=== PATIENT | male | born 1935 | race Caucasian/White ===

== ENCOUNTER 2017-07-14 17:02 | Observation (INO) ==
[2017-07-14] MEDS ORDERED: Pantoprazole 80 MG in 0.9 % Sodium Chloride 50 ML IVPB ONE (17:20)
[2017-07-14] MEDS ORDERED: 0.9 % Sodium Chloride 1,000 ML IVC ONE (17:20)
[2017-07-14 18:05] LABS: Basophils # 0.1 K/mcL (0.0-0.2); Basophils % 0.4 %; Eosinophils % 0.1 %; Hematocrit 34.6 % (37.5-50.1); Hemoglobin 11.7 g/dL (12.9-16.9); Immature Granulocytes % 2.3 % (0-4); Lymphocytes # 1.4 K/mcL (0.6-4.6); Lymphocytes % 8.9 %; Mean Corpuscular HGB Conc 33.8 g/dL (31.6-35.5); Mean Corpuscular Hemoglobin 31.9 pg (28.0-33.3); Mean Corpuscular Volume 94.3 fL (83.0-100.0); Mean Platelet Volume 9.4 fL (9.4-12.4); Monocytes # 1.3 K/mcL (0.0-1.3); Neutrophils # 12.8 K/mcL (1.6-8.9); Platelet Count 273 K/mcL (140-400); Red Blood Count 3.67 M/mcL (4.19-5.50); Red Cell Distribution Width 12.5 % (11.5-14.5); Segmented Neutrophils % 80.3 %
[2017-07-14 18:10] LABS: INR 1.1; Prothrombin Time 11.9 Seconds (9.4-12.1)
[2017-07-14 18:13] LABS: Activated Partial Thrombo Time 23.4 Seconds (26.0-36.0)
[2017-07-14 18:23] LABS: Alanine Aminotransferase 16 Units/L (7-52); Albumin 3.6 g/dL (3.5-5.7); Albumin/Globulin Ratio 1.6 (1.1-2.2); Alkaline Phosphatase 68 Units/L (34-104); Aspartate Amino Transferase 13 Units/L (13-39); BUN/Creatinine Ratio 42 (6-26); Blood Urea Nitrogen 53 mg/dL (8-23); Calcium 8.4 mg/dL (8.6-10.3); Carbon Dioxide 22 mEq/L (23-29); Chloride 107 mEq/L (98-107); Globulin 2.2 g/dL (2.4-3.5); Glucose 126 mg/dL (70-105); Lipase 14 Units/L (11-82); Osmolality,Calculated 302 (280-300); Potassium 4.2 mEq/L (3.5-5.1); Sodium 138 mEq/L (136-145); Total Protein 5.8 g/dL (6.4-8.9); eGFR For African Americans > 60 (> 60); eGFR For Non-African Americans 55 (> 60)
--- NOTE | 2017-07-14 18:55 | Emergency Department Note ---
Disposition Clinical Impression: GI bleed Disposition: Admitted As Inpatient Condition: Good Referrals: Adam De La Cruz MD [Primary Care Provider] - Forms: ED Satisfaction Letter, Work/School Release Time of Disposition: 19:06 Abdominal Pain HPI - General Chief Complaint: ED Abdominal Pain Stated Complaint: ABD Pain Time Seen by Provider: 07/14/17 17:10 Source: patient Mode of arrival: ambulatory Limitations: no limitations Nursing Notes Reviewed: Yes Vital Signs Reviewed: Yes - History of Present Illness HPI Narrative: Patient presents to the ED with the chief complaint of abdominal pain and melanic stools. Patient reports that he has intermittent epigastric abdominal pain all the time that it is been worse over the last few days. States that he had his right- sided sciatica acting up on him, so he has been taking ibuprofen daily for about the last week. He finally went to his chiropractor today to get adjusted and his pain is gone. Family reports that last night he had an episode of vomiting after epigastric abdominal pain. And then he had 2 episodes of melanic stools that have blood mixed in with it. Family does have a picture of this. Patient states he just has not really felt right since then. No chest pain, shortness of breath, fever or further vomiting. No dysuria or hematuria. No pain or swelling in his legs. No previous history of GI bleed. Has had a colonoscopy within the last few years, which did show some polyps but no history of malignancy Pain Scale: 0 - Related Data Home Medications Medication Instructions Recorded Confirmed Lovastatin [Altoprev] 20 mg PO DAILY 07/04/17 07/14/17 Lisinopril [Zestril] 10 mg PO DAILY 07/14/17 07/14/17 Allergies Allergy/AdvReac Type Severity Reaction Status Date / Time No Known Allergies Allergy Verified 07/14/17 17:06 Review of Systems: As reviewed in the HPI. All other systems reviewed are negative or normal. Abdominal Pain PMH - Past Medical History Medical history: Reports: hyperlipidemia, hypertension, other Male Surgical History: Reports: herniorrhaphy, orthopedic, other Psychiatric history: Reports: no psych history - Social History Smoking status: Never smoker Alcohol use: Reports: none Drug use: Reports: none Physical Exam - General Limitations: no limitations General appearance: alert, in no apparent distress - Head Head exam: atraumatic, normocephalic, normal inspection - Eye Eye exam: Present: normal appearance, PERRL, EOMI - ENT ENT exam: normal exam, normal oropharynx, mucous membranes moist - Chest Chest inspection: Present: normal inspection, symmetric chest wall rise - Respiratory Respiratory exam: Present: normal lung sounds bilaterally - Cardiovascular Cardiovascular exam: Present: regular rate, normal rhythm, normal heart sounds - Abdominal Exam Abdominal exam: Present: soft, tenderness, distention (Mild). Absent: guarding , rebound Abdominal tenderness: Present: epigastrium, mild - Extremities Exam Extremities exam: Present: normal inspection, full ROM. Absent: tenderness, pedal edema - Neurological Exam Neurological exam: Present: alert, oriented X3 - Psychiatric Psychiatric exam: Present: normal affect, normal mood - Skin Skin exam: Present: warm, dry, intact, normal color Course Course Narrative: Patient presenting the ED with epigastric abdominal pain and melanic stools. He declined a rectal exam at this time and wanted to try to have a bowel movement. However, the picture that his family has is clearly melanic stools with blood. Suspecting upper GI bleed from his recent ibuprofen use. He is not on blood thinners. We will check labs, get protonic's, IV fluids and admit. The patient's vitals are stable. He is not in any distress. - Reevaluation(s) Reevaluation #1: Patient with apparent GI bleed. Hemoglobin is not acutely low. His vital signs are stable. Admitted to Dr. Tapia Vital Signs Temperature 97.9 F 07/14/17 17:03 Pulse Rate 108 07/14/17 17:03 Respiratory Rate 16 07/14/17 17:03 Blood Pressure 103/68 07/14/17 17:03 O2 Sat by Pulse Oximetry 96 07/14/17 17:03 Temperature 97.9 F 07/14/17 17:03 Pulse Rate 78 07/14/17 18:42 Respiratory Rate 21 07/14/17 18:42 Blood Pressure 131/65 07/14/17 18:42 O2 Sat by Pulse Oximetry 100 07/14/17 18:42 Oxygen Delivery Oxygen Delivery Room Air Abdominal Pain - Lab Data Result diagrams: 07/14/17 17:51 07/14/17 17:51 Lab Results 07/14/17 07/14/17 07/14/17 Range/Units 17:51 17:51 17:51 WBC 15.9 H (4.3-11.1) K/mcL RBC 3.67 L (4.19-5.50) M/mcL Hgb 11.7 L (12.9-16.9) g/dL Hct 34.6 L (37.5-50.1) % MCV 94.3 (83.0-100.0) fL MCH 31.9 (28.0-33.3) pg MCHC 33.8 (31.6-35.5) g/dL RDW 12.5 (11.5-14.5) % Plt Count 273 (140-400) K/mcL MPV 9.4 (9.4-12.4) fL Immature Gran % 2.3 (0-4) % Seg Neutrophils % 80.3 % Lymphocytes % 8.9 % Monocytes % 8.0 % Eosinophils % 0.1 % Basophils % 0.4 % Neutrophils # 12.8 H (1.6-8.9) K/mcL Lymphocytes # 1.4 (0.6-4.6) K/mcL Monocytes # 1.3 (0.0-1.3) K/mcL Eosinophils # 0.0 (0.0-0.6) K/mcL Basophils # 0.1 (0.0-0.2) K/mcL PT 11.9 (9.4-12.1) Seconds INR 1.1 APTT 23.4 L (26.0-36.0) Seconds Sodium 138 (136-145) mEq/L Potassium 4.2 (3.5-5.1) mEq/L Chloride 107 (98-107) mEq/L Carbon Dioxide 22 L (23-29) mEq/L BUN 53 H (8-23) mg/dL Creatinine 1.25 (0.70-1.30) mg/dL Est GFR ( Amer) > 60 (> 60) Est GFR (Non-Af Amer) 55 L (> 60) BUN/Creatinine Ratio 42 H (6-26) Glucose 126 H (70-105) mg/dL Calculated Osmolality 302 H (280-300) Lactic Acid (0.5-2.2) mmol/L Calcium 8.4 L (8.6-10.3) mg/dL Total Bilirubin 1.0 (0.3-1.0) mg/dL AST 13 (13-39) Units/L ALT 16 (7-52) Units/L Alkaline Phosphatase 68 (34-104) Units/L Serum Total Protein 5.8 L (6.4-8.9) g/dL Albumin 3.6 (3.5-5.7) g/dL Globulin 2.2 L (2.4-3.5) g/dL Albumin/Globulin Ratio 1.6 (1.1-2.2) Lipase 14 (11-82) Units/L Blood Type Antibody Screen 07/14/17 07/14/17 Range/Units 17:51 18:24 WBC (4.3-11.1) K/mcL RBC (4.19-5.50) M/mcL Hgb (12.9-16.9) g/dL Hct (37.5-50.1) % MCV (83.0-100.0) fL MCH (28.0-33.3) pg MCHC (31.6-35.5) g/dL RDW (11.5-14.5) % Plt Count (140-400) K/mcL MPV (9.4-12.4) fL Immature Gran % (0-4) % Seg Neutrophils % % Lymphocytes % % Monocytes % % Eosinophils % % Basophils % % Neutrophils # (1.6-8.9) K/mcL Lymphocytes # (0.6-4.6) K/mcL Monocytes # (0.0-1.3) K/mcL Eosinophils # (0.0-0.6) K/mcL Basophils # (0.0-0.2) K/mcL PT (9.4-12.1) Seconds INR APTT (26.0-36.0) Seconds Sodium (136-145) mEq/L Potassium (3.5-5.1) mEq/L Chloride (98-107) mEq/L Carbon Dioxide (23-29) mEq/L BUN (8-23) mg/dL Creatinine (0.70-1.30) mg/dL Est GFR ( Amer) (> 60) Est GFR (Non-Af Amer) (> 60) BUN/Creatinine Ratio (6-26) Glucose (70-105) mg/dL Calculated Osmolality (280-300) Lactic Acid 2.1 (0.5-2.2) mmol/L Calcium (8.6-10.3) mg/dL Total Bilirubin (0.3-1.0) mg/dL AST (13-39) Units/L ALT (7-52) Units/L Alkaline Phosphatase (34-104) Units/L Serum Total Protein (6.4-8.9) g/dL Albumin (3.5-5.7) g/dL Globulin (2.4-3.5) g/dL Albumin/Globulin Ratio (1.1-2.2) Lipase (11-82) Units/L Blood Type A POSITIVE Antibody Screen NEGATIVE Attestation Statement - Attestation Attestation: I examined this patient and my medical decision-making was reviewed with the Resident Physician. I agree with the documented findings, disposition and treatment plan as described except to the extent set forth below.
--- NOTE | 2017-07-14 19:05 | Emergency Department Note ---
Disposition Clinical Impression: GI bleed Disposition: Admitted As Inpatient Condition: Good Referrals: Adam De La Cruz MD [Primary Care Provider] - Forms: ED Satisfaction Letter, Work/School Release General Adult HPI - General Chief complaint: ED Abdominal Pain Stated complaint: ABD Pain Time Seen by Provider: 07/14/17 17:10 Source: patient Mode of arrival: ambulatory Limitations: no limitations - History of Present Illness Pain Scale: 0 - Related Data Home Medications Medication Instructions Recorded Confirmed Lovastatin [Altoprev] 20 mg PO DAILY 07/04/17 07/04/17 Previous Rx's Medication Instructions Recorded Meloxicam [Mobic] 15 mg PO DAILY #7 tab 07/04/17 MethylPREDNISolone 4 mg PO DAILY #21 tab 07/04/17 [MethylPREDNISolone Dose Pack] Allergies Allergy/AdvReac Type Severity Reaction Status Date / Time No Known Allergies Allergy Verified 07/14/17 17:06 Past Medical History - Past Medical History Medical history: Reports: hyperlipidemia, hypertension, other Psychiatric history: Reports: no psych history - Social History Smoking Status: Never smoker Smokeless Tobacco Status: No Alcohol use: Reports: none Drug use: Reports: none Physical Exam - General Limitations: no limitations General appearance: alert, in no apparent distress Course Vital Signs Temperature 97.9 F 07/14/17 17:03 Pulse Rate 108 07/14/17 17:03 Respiratory Rate 16 07/14/17 17:03 Blood Pressure 103/68 07/14/17 17:03 O2 Sat by Pulse Oximetry 96 07/14/17 17:03 Temperature 97.9 F 07/14/17 17:03 Pulse Rate 78 07/14/17 18:42 Respiratory Rate 21 07/14/17 18:42 Blood Pressure 131/65 07/14/17 18:42 O2 Sat by Pulse Oximetry 100 07/14/17 18:42 Oxygen Delivery Oxygen Delivery Room Air Medical Decision Making - Lab Data Result diagrams: 07/14/17 17:51 07/14/17 17:51 Lab Results 07/14/17 07/14/17 07/14/17 Range/Units 17:51 17:51 17:51 WBC 15.9 H (4.3-11.1) K/mcL RBC 3.67 L (4.19-5.50) M/mcL Hgb 11.7 L (12.9-16.9) g/dL Hct 34.6 L (37.5-50.1) % MCV 94.3 (83.0-100.0) fL MCH 31.9 (28.0-33.3) pg MCHC 33.8 (31.6-35.5) g/dL RDW 12.5 (11.5-14.5) % Plt Count 273 (140-400) K/mcL MPV 9.4 (9.4-12.4) fL Immature Gran % 2.3 (0-4) % Seg Neutrophils % 80.3 % Lymphocytes % 8.9 % Monocytes % 8.0 % Eosinophils % 0.1 % Basophils % 0.4 % Neutrophils # 12.8 H (1.6-8.9) K/mcL Lymphocytes # 1.4 (0.6-4.6) K/mcL Monocytes # 1.3 (0.0-1.3) K/mcL Eosinophils # 0.0 (0.0-0.6) K/mcL Basophils # 0.1 (0.0-0.2) K/mcL PT 11.9 (9.4-12.1) Seconds INR 1.1 APTT 23.4 L (26.0-36.0) Seconds Sodium 138 (136-145) mEq/L Potassium 4.2 (3.5-5.1) mEq/L Chloride 107 (98-107) mEq/L Carbon Dioxide 22 L (23-29) mEq/L BUN 53 H (8-23) mg/dL Creatinine 1.25 (0.70-1.30) mg/dL Est GFR ( Amer) > 60 (> 60) Est GFR (Non-Af Amer) 55 L (> 60) BUN/Creatinine Ratio 42 H (6-26) Glucose 126 H (70-105) mg/dL Calculated Osmolality 302 H (280-300) Lactic Acid (0.5-2.2) mmol/L Calcium 8.4 L (8.6-10.3) mg/dL Total Bilirubin 1.0 (0.3-1.0) mg/dL AST 13 (13-39) Units/L ALT 16 (7-52) Units/L Alkaline Phosphatase 68 (34-104) Units/L Serum Total Protein 5.8 L (6.4-8.9) g/dL Albumin 3.6 (3.5-5.7) g/dL Globulin 2.2 L (2.4-3.5) g/dL Albumin/Globulin Ratio 1.6 (1.1-2.2) Lipase 14 (11-82) Units/L Blood Type Antibody Screen 07/14/17 07/14/17 Range/Units 17:51 18:24 WBC (4.3-11.1) K/mcL RBC (4.19-5.50) M/mcL Hgb (12.9-16.9) g/dL Hct (37.5-50.1) % MCV (83.0-100.0) fL MCH (28.0-33.3) pg MCHC (31.6-35.5) g/dL RDW (11.5-14.5) % Plt Count (140-400) K/mcL MPV (9.4-12.4) fL Immature Gran % (0-4) % Seg Neutrophils % % Lymphocytes % % Monocytes % % Eosinophils % % Basophils % % Neutrophils # (1.6-8.9) K/mcL Lymphocytes # (0.6-4.6) K/mcL Monocytes # (0.0-1.3) K/mcL Eosinophils # (0.0-0.6) K/mcL Basophils # (0.0-0.2) K/mcL PT (9.4-12.1) Seconds INR APTT (26.0-36.0) Seconds Sodium (136-145) mEq/L Potassium (3.5-5.1) mEq/L Chloride (98-107) mEq/L Carbon Dioxide (23-29) mEq/L BUN (8-23) mg/dL Creatinine (0.70-1.30) mg/dL Est GFR ( Amer) (> 60) Est GFR (Non-Af Amer) (> 60) BUN/Creatinine Ratio (6-26) Glucose (70-105) mg/dL Calculated Osmolality (280-300) Lactic Acid 2.1 (0.5-2.2) mmol/L Calcium (8.6-10.3) mg/dL Total Bilirubin (0.3-1.0) mg/dL AST (13-39) Units/L ALT (7-52) Units/L Alkaline Phosphatase (34-104) Units/L Serum Total Protein (6.4-8.9) g/dL Albumin (3.5-5.7) g/dL Globulin (2.4-3.5) g/dL Albumin/Globulin Ratio (1.1-2.2) Lipase (11-82) Units/L Blood Type A POSITIVE Antibody Screen NEGATIVE Attestation Statement - Attestation Attestation: I examined this patient and my medical decision-making was reviewed with the Resident Physician. I agree with the documented findings, disposition and treatment plan as described except to the extent set forth below. 82-year-old male presents ED because of dark tarry stools. He has had some vague abdominal discomfort. He also reports having increasing sciatica pain and has been taking ibuprofen daily for the past week. Today, after returning home from a chiropractor, he had sequential dark stools prompting him to come to the ED. Denies lightheadedness or dizziness. No vomiting. No current abdominal pain. No chest pain or dyspnea. Generally well-appearing, elderly male in no apparent physiologic distress. Oropharynx is clear mucous membranes membranes moist. Neck supple. Chest is clear to auscultation bilaterally. Abdomen soft, nondistended and no current tenderness. Extremities warm and dry. Be was elevated over 50, hemoglobin currently 11. He is given IV Protonix and will be admitted for serial hemoglobins and probable need for upper GI endoscopy. The high probability of a clinically significant, sudden or life threatening deterioration of the [cardiovascular] system(s) required my full and direct attention, intervention and personal management. The aggregate critical care time was [10] minutes. This time is in addition to time spent performing reported procedures but includes the following: [x] Data Review and interpretation [x] Patient assessment and monitoring of vital signs [x] Documentation [x] Medication orders and management
[2017-07-14] MEDS ORDERED: Naloxone 0.4 MG/ML INJ IVP PRN (20:15)
--- NOTE | 2017-07-14 21:06 | Internal Med History&Physical ---
Date of Encounter: 07/14/17 Time of Encounter: 19:10 Internal Medicine - H&P: HPI Chief complaint: Melena Admitted From: Home Plans for Post Hospital Care: Home History of present illness: Mr. Gayle is a 82 year old male presented to ER for black stool. Past medical history is significant for hyperlipidemia and hypertension. Patient has recently sciatic nerve pain and takes by mouth steroid and ibuprofen. Since last night, he has black stool with trace of blood in it. He also vomited once, cannot clearly remember what was the color of vomiting. Patient totally has twice black stool. Patient has dizziness and diaphoresis. Patient denies shortness of breath, chest pain, urinating symptoms, or fever. He complained of mild abdominal pain. In the emergency room, patient was found tachycardia, elevated BUN, and hemoglobin dropped to 11.7 from 1 year ago 14.8. He was given IV fluid and tachycardia has improved. Patient was admitted for GI bleed. Past Med Surg Social Fam HX - Past Medical History Medical history: hyperlipidemia, hypertension, other Psychiatric history: no psych history - Social History Smoking Status: Never smoker Smokeless Tobacco Status: No Alcohol use: none Drug use: none - Family History Mother History Unknown: Yes Internal Medicine - H&P: Meds Lovastatin [Altoprev] 20 mg PO DAILY 07/04/17 [History] Lisinopril [Zestril] 10 mg PO DAILY 07/14/17 [History] 3 Allergy/AdvReac Type Severity Reaction Status Date / Time No Known Allergies Allergy Verified 07/14/17 17:06 All Systems PM: A 10-system review of systems was performed and is negative for pertinent findings except as documented above in the HPI. - Constitutional Vitals: Temp Pulse Resp BP Pulse Ox 98.0 F 72 15 115/62 97 07/14/17 21:00 07/14/17 21:00 07/14/17 21:00 07/14/17 21:00 07/14/17 21:00 General appearance: Present: A&O X 3, no acute distress, answers questions appropriately - Head Head exam: Present: atraumatic, normocephalic - Eye Eye exam: Present: PERRL, conjuntiva pink, sclera anicteric Pupils: Present: PERRL - Neck Neck exam general surgery: Present: supple, trachea midline. Absent: lymphadenopathy - Respiratory Respiratory exam: Present: CTAB. Absent: accessory muscle use, rales, rhonchi, wheezes - Cardiovascular Cardiovascular exam: Present: RRR, +S1, +S2. Absent: diastolic murmur, gallop, rubs, systolic murmur - GI/Abdominal GI/Abdominal exam: Present: normal bowel sounds, soft, no peritoneal signs. Absent: distended, tenderness - Extremities Exam Extremities exam: Present: warm, radial pulses palpable and symmetrical. Absent : calf tenderness, cyanotic, pedal edema - Neurological Exam Neurological exam: Present: CN II-XII intact, oriented X3, no focal deficits. Absent: pronater drift, facial droop, speech deficit - Skin Skin exam: Present: dry, intact Internal Med - H&P Results - Labs CBC & Chem 7: 07/14/17 17:51 07/14/17 17:51 - Assessment and plan (1) GI bleed Current Visit: Yes Status: Acute Assessment and plan: Patient has melena with signs of hypovolemia. Consider GI bleed. Probably due to recent steroid and ibuprofen use - Continue cardiac monitoring - Vitals every 30 minutes - H&H every 6 hours - Nothing by mouth, IV fluid, IV PPI - Consul GI in a.m. Qualifiers: GI bleed type/associated pathology: melena Qualified Code(s): K92.1 - Melena (2) Hypertension Current Visit: Yes Status: Acute Assessment and plan: We will hold hypertensive medication at patient has acute GI bleed. Will closely monitor BP. Qualifiers: Hypertension type: essential hypertension Qualified Code(s): I10 - Essential (primary) hypertension (3) DVT prophylaxis Current Visit: Yes Status: Acute Assessment and plan: EPCD - Time Spent With Patient Total time spent is greater than 50% in coordination of care (as documented) at patient's floor/unit and/or counseling patient: 40 minutes Greater than 35 minutes
[2017-07-14] MEDS: Pantoprazole 40 MG in 0.9 % Sodium Chloride Mini Bag 100 ML IVC SCH (21:51)
[2017-07-14] MEDS: 0.9 % Sodium Chloride 1,000 ML IVC SCH (21:51)
[2017-07-14 22:07] LABS: Hemoglobin 10.6 g/dL (12.9-16.9)
[2017-07-15] MEDS ORDERED: Acetaminophen 325 MG TABLET PO PRN (04:22)
[2017-07-15] MEDS: Pantoprazole 40 MG in 0.9 % Sodium Chloride Mini Bag 100 ML IVC SCH ×2 (04:24→23:43)
[2017-07-15 05:33] LABS: Basophils % 0.3 %; Eosinophils # 0.2 K/mcL (0.0-0.6); Eosinophils % 1.1 %; Hematocrit 28.2 % (37.5-50.1); Hemoglobin 9.5 g/dL (12.9-16.9); Immature Granulocytes % 1.6 % (0-4); Lymphocytes # 2.9 K/mcL (0.6-4.6); Lymphocytes % 18.6 %; Mean Corpuscular HGB Conc 33.7 g/dL (31.6-35.5); Mean Corpuscular Hemoglobin 32.3 pg (28.0-33.3); Mean Corpuscular Volume 95.9 fL (83.0-100.0); Mean Platelet Volume 9.8 fL (9.4-12.4); Monocytes # 1.3 K/mcL (0.0-1.3); Monocytes % 8.7 %; Neutrophils # 10.7 K/mcL (1.6-8.9); Platelet Count 215 K/mcL (140-400); Red Blood Count 2.94 M/mcL (4.19-5.50); Red Cell Distribution Width 12.6 % (11.5-14.5); Segmented Neutrophils % 69.7 %
[2017-07-15 05:57] LABS: BUN/Creatinine Ratio 36 (6-26); Blood Urea Nitrogen 37 mg/dL (8-23); Calcium 7.9 mg/dL (8.6-10.3); Carbon Dioxide 23 mEq/L (23-29); Chloride 111 mEq/L (98-107); Glucose 98 mg/dL (70-105); Magnesium 1.7 mg/dL (1.6-2.6); Osmolality,Calculated 295 (280-300); Potassium 3.8 mEq/L (3.5-5.1); Sodium 138 mEq/L (136-145); eGFR For African Americans > 60 (> 60); eGFR For Non-African Americans > 60 (> 60)
[2017-07-15] MEDS: 0.9 % Sodium Chloride 1,000 ML IVC SCH (08:29)
[2017-07-15 09:34] LABS: Hematocrit 27.9 % (37.5-50.1); Hemoglobin 9.6 g/dL (12.9-16.9)
--- NOTE | 2017-07-15 11:13 | Gastroenterology Consult Note ---
<Valeriano Smith - Last Filed: 07/15/17 11:11> Date of Encounter: 07/15/17 Time of Encounter: 10:10 - Assessment and plan (1) Anemia Current Visit: Yes Status: Acute Assessment and plan: Likely secondary to GI bleeding. On admission Hgb 11.7 down from 14.8 in May 2016, this AM Hgb 9.5. Continue to monitor CBC and transfuse PRBC as needed. Qualifiers: Anemia type: unspecified type Qualified Code(s): D64.9 - Anemia, unspecified (2) GI bleed Current Visit: Yes Status: Acute Assessment and plan: Pt with two episodes of melena. Plan for EGD today to r/o esophagitis, gastritis , duodenitis, PUD, MW tear, or AVM. Continue PPI and keep NPO. Qualifiers: GI bleed type/associated pathology: melena Qualified Code(s): K92.1 - Melena - Time Spent With Patient Total time spent is greater than 50% in coordination of care (as documented) at patient's floor/unit and/or counseling patient: GI History of Present Illness - Data of Consult Patient: new to practice Consult date: 07/15/17 Requesting Physician: Ross Tapia MD - Consult Narrative Reason for consult: GI bleed History of present illness: Mr. Gayle is a 82 year old male with PMHx of HLD and HTN who presented to the ED with black stool. Pt has been taking steroids and ibuprofen for sciatic nerve pain. He reports two episodes of black stool with traces of blood in it. He complained of mild abdominal pain. He denies fever, chills, chest pain, shortness of breath. On admission Hgb 11.7 down from 14.8 in May 2016, this AM Hgb 9.5. Procedures: None NSAIDs: Ibuprofen Anticoagulation: None Past Med Surg Social Fam HX - Past Medical History Medical history: hyperlipidemia, hypertension, other Psychiatric history: no psych history - Social History Smoking Status: Never smoker Smokeless Tobacco Status: No Alcohol use: none Drug use: none - Family History Mother History Unknown: Yes - Gastrointestinal Gastrointestinal: Present: as per HPI - Constitutional Constitutional: as per HPI - EENT Eyes: as per HPI Ears: Present: as per HPI Nose, mouth and throat: Present: as per HPI - Cardiovascular Cardiovascular ROS: Present: as per HPI - Respiratory Respiratory IM: Present: as per HPI - Genitourinary Genitourinary: Absent: change in color, Urinary frequency - Neurological ROS Neurological GI: Present: as per HPI - Hematologic/Lymphatic Hematologic/Lymphatic pediatric: Present: as per HPI - Musculoskeletal Musculoskeletal ROS GI: Present: as per HPI - Integumentary Integumentary GI: Present: as per HPI - Psychiatric ROS Psychiatric GI: Present: as per HPI - Endocrine Endocrine IM: Present: as per HPI - Constitutional Vitals: Temp Pulse Resp BP Pulse Ox 97.8 F 63 16 118/66 99 07/15/17 06:38 07/15/17 06:38 07/15/17 06:38 07/15/17 06:38 07/15/17 08:15 General appearance: Present: cooperative, A&O X 3, no acute distress, answers questions appropriately - Head Head exam: Present: atraumatic, normocephalic - Eye Eye exam: Present: normal appearance, sclera anicteric - ENT ENT exam: Present: mucous membranes dry - Neck Neck exam general surgery: Present: normal inspection, trachea midline - Respiratory Respiratory exam: Present: CTAB. Absent: rales, rhonchi - Cardiovascular Cardiovascular exam: Present: RRR, +S1, +S2 - GI/Abdominal GI/Abdominal exam: Present: soft, no peritoneal signs. Absent: distended, firm , guarding, tenderness - Rectal Rectal exam: Present: deferred - Extremities Exam Extremities exam: Present: warm - Neurological Exam Neurological exam: Present: no focal deficits - Psychiatric Psychiatric exam: Present: normal affect, normal mood - Skin Skin exam: Present: dry, intact, normal color, warm Results - Labs CBC & Chem 7: 07/15/17 09:15 07/15/17 04:46 Labs: Last Result Calcium 7.9 mg/dL (8.6-10.3) L 07/15/17 04:46 Stool Occult Blood Positive (Negative) A 07/14/17 18:00 Entire Visit Hgb 9.6 g/dL (12.9-16.9) L 07/15/17 09:15 Hct 27.9 % (37.5-50.1) L 07/15/17 09:15 PT 11.9 Seconds (9.4-12.1) 07/14/17 17:51 Total Bilirubin 1.0 mg/dL (0.3-1.0) 07/14/17 17:51 AST 13 Units/L (13-39) 07/14/17 17:51 ALT 16 Units/L (7-52) 07/14/17 17:51 Lipase 14 Units/L (11-82) 07/14/17 17:51 - ABG ABG results: PT/INR, D-dimer PT 11.9 Seconds (9.4-12.1) 07/14/17 17:51 Consult Discharge Plan - Plan Referrals: Terri Kelsey CNP [Advanced Practice Nurse] - 07/22/17 11:00 am Adam De La Cruz MD [Primary Care Provider] - <Chaka Adan - Last Filed: 07/16/17 08:07> Date of Encounter: 07/15/17 Time of Encounter: 17:00 - Time Spent With Patient Total time spent is greater than 50% in coordination of care (as documented) at patient's floor/unit and/or counseling patient: GI History of Present Illness - Data of Consult Requesting Physician: Ross Tapia MD - Consult Narrative History of present illness: Mr. Gayle is a 82 year old male - Constitutional Vitals: Temp Pulse Resp BP Pulse Ox 97.6 F 60 16 120/71 98 07/16/17 07:23 07/16/17 07:23 07/16/17 07:23 07/16/17 07:23 07/16/17 07:23 Results - Labs CBC & Chem 7: 07/16/17 04:00 07/16/17 04:00 Labs: Last Result Calcium 8.1 mg/dL (8.6-10.3) L 07/16/17 04:00 Stool Occult Blood Positive (Negative) A 07/14/17 18:00 Entire Visit Hgb 9.2 g/dL (12.9-16.9) L 07/16/17 04:00 Hct 27.7 % (37.5-50.1) L 07/16/17 04:00 PT 11.9 Seconds (9.4-12.1) 07/14/17 17:51 Total Bilirubin 1.0 mg/dL (0.3-1.0) 05/08/18 17:51 AST 13 Units/L (13-39) 07/14/17 17:51 ALT 16 Units/L (7-52) 07/14/17 17:51 Lipase 14 Units/L (11-82) 07/14/17 17:51 - ABG ABG results: PT/INR, D-dimer PT 11.9 Seconds (9.4-12.1) 07/14/17 17:51 - Attending Attestation I have personally performed a face to face evaluation on this patient. I have reviewed and agree with the care plan. History and Exam by me shows: Patient seen no abdominal pain does has anemia and melena. Abdominal exam is unremarkable. Assessment and plan: Patient melena. EGD today meanwhile continue PPI
--- NOTE | 2017-07-15 12:36 | Internal Med Progress Note ---
Date of Encounter: 07/15/17 Time of Encounter: 12:34 - Assessment and plan (1) GI bleed Current Visit: Yes Status: Acute Assessment and plan: Patient has melena with signs of hypovolemia. Consider GI bleed. Probably due to recent steroid and ibuprofen use - Continue cardiac monitoring - Vitals every 30 minutes - H&H every 6 hours - Nothing by mouth, IV fluid, IV PPI EGD today Qualifiers: GI bleed type/associated pathology: melena Qualified Code(s): K92.1 - Melena (2) Hypertension Current Visit: Yes Status: Acute Assessment and plan: Hold home lisinopril for now as patient hypotensive. Qualifiers: Hypertension type: essential hypertension Qualified Code(s): I10 - Essential (primary) hypertension (3) DVT prophylaxis Current Visit: Yes Status: Acute Assessment and plan: EPCD - Time Spent With Patient Total time spent is greater than 50% in coordination of care (as documented) at patient's floor/unit and/or counseling patient: - Subjective Interval history: No acute events. Denies any further black stools Denies CP, SOB, N/V, abdominal pain. - Constitutional Vitals: Temp Pulse Resp BP Pulse Ox 97.7 F 59 16 103/49 97 07/15/17 12:04 07/15/17 12:04 07/15/17 12:04 07/15/17 12:04 07/15/17 12:04 General appearance: Present: A&O X 3, no acute distress, answers questions appropriately - Head Head exam: Present: atraumatic, normocephalic - Eye Eye exam: Present: PERRL, conjuntiva pink, sclera anicteric Pupils: Present: PERRL - Neck Neck exam general surgery: Present: supple, trachea midline. Absent: lymphadenopathy - Respiratory Respiratory exam: Present: CTAB. Absent: accessory muscle use, rales, rhonchi, wheezes - Cardiovascular Cardiovascular exam: Present: RRR, +S1, +S2. Absent: diastolic murmur, gallop, rubs, systolic murmur - GI/Abdominal GI/Abdominal exam: Present: normal bowel sounds, soft, no peritoneal signs. Absent: distended, tenderness - Extremities Exam Extremities exam: Present: warm, radial pulses palpable and symmetrical. Absent : calf tenderness, cyanotic, pedal edema - Neurological Exam Neurological exam: Present: CN II-XII intact, oriented X3, no focal deficits. Absent: pronater drift, facial droop, speech deficit - Skin Skin exam: Present: dry, intact Internal Medicine: Result - Labs CBC & Chem 7: 07/15/17 09:15 07/15/17 04:46 Labs: Short CBC 07/14/17 07/15/17 07/15/17 Range/Units 21:40 04:46 09:15 WBC 15.3 H (4.3-11.1) K/mcL Hgb 10.6 L 9.5 L 9.6 L (12.9-16.9) g/dL Hct 30.0 L 28.2 L 27.9 L (37.5-50.1) % Plt Count 215 (140-400) K/mcL Neutrophils # 10.7 H (1.6-8.9) K/mcL BMP 07/15/17 04:46 Sodium 138 Potassium 3.8 Chloride 111 H Carbon Dioxide 23 BUN 37 H Creatinine 1.02 Glucose 98 Calcium 7.9 L - ABG Interpretation ABG results: PT/INR, D-dimer PT 11.9 Seconds (9.4-12.1) 07/14/17 17:51 - VTE Documentation of Mechanical Device: Intermittent pneumatic compression device Consult Discharge Plan - Plan Referrals: Adam De La Cruz MD [Primary Care Provider] -
--- NOTE | 2017-07-15 13:09 | Anesthesia Evaluation PreOp ---
Date of Encounter: 07/15/17 - Past History Planned Operation: EGD Cardiac History: HTN, Hyperlipidemia, Other (anemia) Pulmonary History: Denies Any Significant HX PROGRAM MGR History: Denies Any Significant HX Other Medical History: Other (melana, sciatic pain) Anesthesia History: Past Anesthesia (none) Alcohol Use: none Drug use: none Medications and Allergies Lovastatin [Altoprev] 20 mg PO DAILY 07/04/17 [History] Lisinopril [Zestril] 10 mg PO DAILY 07/14/17 [History] 3 Allergy/AdvReac Type Severity Reaction Status Date / Time No Known Allergies Allergy Verified 07/14/17 17:06 - Meds/Allergy Pre-op Review Medications Reviewed: Yes Allergies Reviewed: Yes Beta Blockers on Current Med List: Yes Anesthesia Results - Labs 07/15/17 09:15 07/15/17 04:46 Anesthesia Exam Selected Entries 07/15/17 12:04 Temperature 97.7 F Pulse Rate 59 Respiratory Rate 16 Blood Pressure 103/49 O2 Sat by Pulse Oximetry 97 Oxygen Delivery Method Room Air Weight: 81kg NPO (# of Hours): 8 Anesthesia Assess/Plan ASA Score: 2 Modified Maxwell Scale for Level of Consciousness: Cooperative, oriented, and tranquil Anesthetic Plan: MAC Monitoring Plan: Standard Monitors Recovery Plan: Other (agrees to MAC)
[2017-07-15] MEDS ORDERED: *HR* FentaNYL (PF) 100 MCG/2 ML VIAL ONE (14:39)
[2017-07-15] MEDS ORDERED: *HR* Midazolam HCl 5 MG/5 ML VIAL IVP ONE (14:39)
[2017-07-15] MEDS: *HR* HYDROcodone/Acet 5/325 mg TABLET PO PRN ×2 (16:34→23:44)
[2017-07-15] MEDS ORDERED: *HR* FentaNYL (PF) 100 MCG/2 ML VIAL IVP ONE (17:31)
[2017-07-15] MEDS ORDERED: *HR* Midazolam HCl 2 MG/2 ML VIAL IVP ONE (17:31)
[2017-07-15] MEDS ORDERED: Simethicone 40 MG/0.6 ML MLS IR ONE (17:31)
[2017-07-15] MEDS ORDERED: Tetracaine/Benzocaine/Butamben 200MG/SPRAY (100SPY/BOT) MM ONE (17:31)
--- NOTE | 2017-07-15 17:31 | Pre-Sedation Evaluation ---
Pre-sedation evaluation - Pre-sedation checklist Date of procedure: 07/15/17 Recent Vitals: Last Vital Signs Temp 97.9 F 07/15/17 14:41 Pulse 65 07/15/17 17:28 Resp 16 07/15/17 17:28 BP 145/59 07/15/17 17:28 Pulse Ox 99 07/15/17 17:28 ASA Classification *see protocol: CLASS III-Severe systemic disease Plan of Care: Pt appropriate candidate for procedure/moderate/conscious sedation , Risks/benefits of procedure/sedation discussed w/ patient/family
[2017-07-15 18:00] LABS: Hematocrit 26.6 % (37.5-50.1); Hemoglobin 9.2 g/dL (12.9-16.9)
[2017-07-16] MEDS: Pantoprazole 40 MG in 0.9 % Sodium Chloride Mini Bag 100 ML IVC SCH (04:54)
--- NOTE | 2017-07-16 05:24 | Electrocardiograph Report ---
[place] [id number] Test Date: 2017-07-14 Pat Name: Angel Gayle Department: 102 Room: 3A34 Gender: M [employer]: : [id number] Requested By: [id number] Order Number: [id number] Reading MD: Papito Hansen Measurements Intervals [place] Rate: 85 P: 14 WI: 139 QRS: -14 QRSD: 80 T: 10 QT: 360 QTc: 402 Interpretive Statements SINUS RHYTHM LOW QRS VOLTAGE IN PRECORDIAL LEADS POSSIBLE RIGHT VENTRICULAR CONDUCTION DELAY Electronically Signed On 07-16-2017 5:23:06 EDT by Papito Hansen
[2017-07-16 06:21] LABS: BUN/Creatinine Ratio 25 (6-26); Blood Urea Nitrogen 26 mg/dL (8-23); Calcium 8.1 mg/dL (8.6-10.3); Carbon Dioxide 22 mEq/L (23-29); Chloride 111 mEq/L (98-107); Glucose 112 mg/dL (70-105); Osmolality,Calculated 292 (280-300); Potassium 4.2 mEq/L (3.5-5.1); Sodium 138 mEq/L (136-145); eGFR For African Americans > 60 (> 60); eGFR For Non-African Americans > 60 (> 60)
[2017-07-16 06:25] LABS: Basophils # 0.1 K/mcL (0.0-0.2); Basophils % 0.4 %; Eosinophils # 0.3 K/mcL (0.0-0.6); Eosinophils % 2.4 %; Hematocrit 27.7 % (37.5-50.1); Hemoglobin 9.2 g/dL (12.9-16.9); Immature Granulocytes % 1.6 % (0-4); Lymphocytes # 2.8 K/mcL (0.6-4.6); Lymphocytes % 22.1 %; Mean Corpuscular HGB Conc 33.2 g/dL (31.6-35.5); Mean Corpuscular Hemoglobin 32.2 pg (28.0-33.3); Mean Corpuscular Volume 96.9 fL (83.0-100.0); Monocytes % 7.8 %; Neutrophils # 8.2 K/mcL (1.6-8.9); Platelet Count 246 K/mcL (140-400); Red Blood Count 2.86 M/mcL (4.19-5.50); Red Cell Distribution Width 12.5 % (11.5-14.5); Segmented Neutrophils % 65.7 %
[2017-07-16] MEDS: *HR* HYDROcodone/Acet 5/325 mg TABLET PO PRN (09:58)
--- NOTE | 2017-07-16 12:44 | Discharge Summary ---
- NOTES TO OUTPATIENT PROVIDER Notes to Outpatient Provider: - Recheck H&H. - Ensure patient no longer taking NSAIDs Orders not resulted at time of discharge: Pending orders 07/15/17 17:54 Surgical Pathology [PTH] Routine Date of Encounter: 07/16/17 Time of Encounter: 12:38 - Discharge Diagnosis (1) GI bleed Priority: Primary Status: Acute Qualifiers: GI bleed type/associated pathology: melena Qualified Code(s): K92.1 - Melena (2) Hypertension Priority: Secondary Status: Acute Qualifiers: Hypertension type: essential hypertension Qualified Code(s): I10 - Essential (primary) hypertension (3) DVT prophylaxis Priority: Secondary Status: Acute Hospital course: Mr. Gayle is a 82 year old male presented to ER for black stool. Past medical history is significant for hyperlipidemia and hypertension. Patient has recently sciatic nerve pain and takes by mouth steroid and ibuprofen. Night prior to admission he had black stool with trace of blood in it. He also vomited once, cannot clearly remember what was the color of vomiting. Patient totally has twice black stool. Patient has dizziness and diaphoresis. Patient denies shortness of breath, chest pain, urinating symptoms, or fever. He complained of mild abdominal pain. In the emergency room, patient was found tachycardia, elevated BUN, and hemoglobin dropped to 11.7 from 1 year ago 14.8. He was given IV fluid and tachycardia has improved. Patient was admitted for GI bleed. He was started on protonix IV drip. GI was consulted and patient EGD done showing duodenal ulcers, esophagitis, and gastritis. Patient was hemodynamically stable with hemoglobin staying in 9.2 range. He did not require any blood transfusions. Patient finished protonix drip and discharge in stable condition with Carafate and PO omeprazole with follow-up with GI. Patient informed he should avoid any use of NSAIDs. Also avoid prolonged use of steroids as well. - Time Spent with Patient Total time spent providing and/or coordinating discharge services: - Discharge Medications Home Medications: Lovastatin [Altoprev] 20 mg PO DAILY 07/04/17 [History] Lisinopril [Zestril] 10 mg PO DAILY 07/14/17 [History] Omeprazole [PriLOSEC] 40 mg PO DAILY #60 cap 07/16/17 [Rx] Sucralfate [Carafate] 1 gm PO QIDAC #120 tablet 07/16/17 [Rx] Allergies/Adverse Reactions: 3 Allergy/AdvReac Type Severity Reaction Status Date / Time No Known Allergies Allergy Verified 07/14/17 17:06 Date of admission: 07/14/17 19:20 Primary care physician: Adam De La Cruz MD Consults: 07/14/17 20:22 Consult to Gastroenterology [CONS] Routine Consulting Provider: Gastroenterology Luiza Reason for Consult: GI bleed Call Completed: No 07/15/17 09:25 Consult to Invasive Line Access Team [CONS] Routine Reason for Consult: poor vascular access Line Type: EPIV Discharging clinician: Bimal Cornell - Constitutional Vitals: Temp Pulse Resp BP Pulse Ox 97.7 F 58 17 134/71 99 07/16/17 11:00 07/16/17 11:00 07/16/17 11:00 07/16/17 11:00 07/16/17 11:00 General appearance: Present: A&O X 3, no acute distress, answers questions appropriately - Head Head exam: Present: atraumatic, normocephalic - Eye Eye exam: Present: PERRL, conjuntiva pink, sclera anicteric Pupils: Present: PERRL - Neck Neck exam general surgery: Present: supple, trachea midline. Absent: lymphadenopathy - Respiratory Respiratory exam: Present: CTAB. Absent: accessory muscle use, rales, rhonchi, wheezes - Cardiovascular Cardiovascular exam: Present: RRR, +S1, +S2. Absent: diastolic murmur, gallop, rubs, systolic murmur - GI/Abdominal GI/Abdominal exam: Present: normal bowel sounds, soft, no peritoneal signs. Absent: distended, tenderness - Extremities Exam Extremities exam: Present: warm, radial pulses palpable and symmetrical. Absent : calf tenderness, cyanotic, pedal edema - Neurological Exam Neurological exam: Present: CN II-XII intact, oriented X3, no focal deficits. Absent: pronater drift, facial droop, speech deficit - Skin Skin exam: Present: dry, intact - Patient Status Disposition: Home, Self-Care Condition: Good Functional capacity at discharge: independent ambulation Overall status at discharge: patient is back to baseline - Discharge Instructions Follow Up With: Terri Kelsey [facility] [Advanced Practice Nurse] - 07/22/17 11:00 am Adam De La Cruz MD [Primary Care Provider] - - Diet and Activity Activity: increase activity as tolerated Diet: advance to your usual diet - VTE Documentation of Mechanical Device: Intermittent pneumatic compression device
[2017-07-16 14:31] VITALS: BP 121/54
== END 2017-07-16 18:05 | disposition home or self-care (01) ==
LOC: EMEROO 17:02 → 3ANU 17:02
PROVIDERS: ADMIT Internal Medicine; ATTEND Internal Medicine
PROC: ENDOEBX (2017-07-15 14:15)